=== PATIENT | female | born 1995 | race Caucasian/White ===

== ENCOUNTER 2016-07-05 13:47 | Emergency (ER) | payer SELFPAY ==
[~2016-07-05] VITALS: Ht 175.3 cm; Wt 63.0 kg
[2016-07-05 13:53] VITALS: BP 141/89; PULSE 73; TEMP 36.6; O2SAT 100; Ht 175.3 cm; Wt 63.0 kg
[2016-07-05] MEDS ORDERED: AMX875 PO (14:09)
[2016-07-05] MEDS ORDERED: ALBU18002 INH (14:09)
[2016-07-05] MEDS ORDERED: FLUC200T4 PO (14:22)
--- NOTE | 2016-07-07 11:21 | EMERGENCY ROOM VISIT NOTE ---
ED Visit Note First contact with patient: 13:56 Chief Complaint: White throat. History of Present Illness: Ms. Prakash is a 19-year-old white female who ambulates into the ED accompanied by her boyfriend complaining of white spots on her throat and tonsils. She reports her symptoms started approximately 10 days ago with a sore throat and a cough. She was tested for strep last week at a local urgent care center and it was negative. She reports she has been having ongoing pain and today she noted white spots on the back of her throat and over her tonsils. She describes her pain as an achy sensation. She rates her discomfort 1/10. Her pain is nonradiating. Her pain worsens with swallowing. She has not identified any alleviating factors related to the pain. She has not taken any medications for pain prior to arrival at the hospital. She continues to have a nonproductive cough and some mild nasal drainage. She denies fevers, chills, sweats, skin eruptions, skin color changes, headache, dizziness, lightheadedness, moist changes, painful talking, drooling, inability to swallow, neck pain/stiffness, shortness of breath, hemoptysis, wheezing, chest pain, abdominal pain, decreased appetite and nausea/vomiting. Review of Systems: As noted above in history of present illness. 8 body systems were reviewed and found to be negative as noted above. Past Medical History: Unspecified skin disorder, asthma, bronchitis, pneumonia. Current Medications: Amoxicillin, albuterol Allergies to Medications: Patient denies. Social History: Patient is currently employed; she feels safe in her home environment; she admits to tobacco and alcohol use. Physical Examination: Vital Signs: Date Time Temp Pulse Resp B/P Pulse Ox O2 Delivery O2 Flow Rate FiO2 07/05/16 13:53 36.6 73 16 141/89 100 Room Air GENERAL: 21-year-old female in mild distress due to pain, nontoxic-appearing, afebrile and hemodynamically stable. NEUROLOGICAL: Awake, alert and oriented to person, place and time. Answering questions appropriately and following commands. Normal gait. Good hand eye coordination. No focal motor sensory deficits. SKIN: Warm, dry and pink. No soft tissue eruptions or trauma noted. HEENT: Atraumatic and normocephalic. PERRLA. Sclera white and conjunctiva pink without drainage. No drainage from naris, but audible congestion. Airway patent. Oral cavity moist and pink. Uvula is midline and no abscesses are seen. Mild bilateral tonsillar hypertrophy; on the tonsils as well as the posterior pharyngeal area there is a whitish plaque appearing consistent with thrush. Speech normal and clear. No lymphadenopathy. Trachea midline. No jugular venous distention. No laryngeal tenderness. BACK: No tenderness over the bony spine. Full range of motion of the cervical spine THORAX: Lungs sounds are clear to auscultation and equal bilaterally with symmetrical chest wall. ED Course: Patient is assessed as noted above. Patient was educated about tonight's findings and instructed on her treatment plan; she verbalized understanding and agreement with this plan. Clinical Impression: Acute pharyngitis. Thrush. Disposition: Patient discharged home in stable condition accompanied by her boyfriend; prior to departure she was reassessed and subjectively reported she was feeling the same. Plan: Patient was encouraged to alternate ibuprofen and acetaminophen as needed for pain. Patient was prescribed 200 mg of Diflucan once a day for 7 days. Patient was encouraged to gargle with saltwater. Patient was encouraged to avoid tobacco use. Patient was encouraged to use a spacer with her albuterol inhaler. Patient was encouraged to follow-up with her PCP for recheck in 4-5 days. Patient was encouraged return the ED for worsening/uncontrolled pain, painful talking, drooling, fevers, inability to swallow or any new/concerning symptoms.
== END 2016-07-05 14:20 | disposition home or self-care (01) ==
LOC: C.EDB 13:50 → C.EDD 14:20
DX: B37.9 Candidiasis, unspecified (principal); J02.9 Acute pharyngitis, unspecified

== ENCOUNTER 2016-07-21 13:50 | Emergency (ER) | payer SELFPAY ==
[~2016-07-21] VITALS: Ht 175.3 cm; Wt 62.0 kg
[~2016-07-21 13:50] MED LIST: ALBU18002 INH; AMX875 PO
[2016-07-21 14:07] VITALS: Ht 175.3 cm; Wt 62.0 kg
[2016-07-21] MEDS ORDERED: ALBUT/IPRATROP 3MG/0.5MG NEB 3 ML VIAL INH STA (14:33)
[2016-07-21 15:08] LABS: BASO % 0.3 %; BASO ABS # 0.05 K/uL (0-0.2); COMPLETE YES; EOS % 1.1 %; HEMATOCRIT 37.5 % (37-47); IG% 0.2 %; LYMPH % 11.6 %; LYMPH ABS # 1.71 K/uL (1.2-3.4); MEAN CELL VOLUME 84.7 fL (80-100); MEAN CORPUSCULAR HGB CONC 35.5 g/dl (32-36); MONO % 8.2 %; NEUT % 78.6 %; PLATELET COUNT 462 K/uL (130-400); RED BLOOD COUNT 4.43 M/uL (4.2-5.4); WHITE BLOOD COUNT 14.78 K/uL (4.8-10.8)
--- NOTE | 2016-07-21 15:21 | DIAGNOSTIC IMAGING REPORT ---
CHEST 2 VIEWS ROUTINE CLINICAL HISTORY: Cough. Chest tightness. COMPARISON STUDY: Chest radiograph and chest CT October 10, 2013. FINDINGS: Lung volumes are normal. There is no pneumothorax or pleural effusion. There is mild right suprahilar opacity as well as mild opacity along the left heart border, likely within the lingula. Cardiac size is normal. Mediastinal contours are normal. There is no evidence of pulmonary edema. IMPRESSION: Mild right upper lobe and lingular airspace opacities which suggest an infectious process such as bronchopneumonia. Post treatment radiographs to ensure resolution are recommended. Electronically signed by: Girma Ortez M.D. 07/21/2016 3:20 PM Dictated Date/Time: 07/21/2016 3:19 PM
[2016-07-21 15:27] LABS: BUN/CREATININE RATIO 9.6 (10-20); CREATININE 0.84 mg/dl (0.60-1.20); POTASSIUM 3.6 mmol/L (3.5-5.1)
[2016-07-21] MEDS ORDERED: ALBU18002 INH (16:07)
[2016-07-21] MEDS ORDERED: AZIT250T PO (16:07)
--- NOTE | 2016-07-21 16:08 | EMERGENCY ROOM VISIT NOTE ---
History First contact with patient: 14:22 Chief Complaint: ILLNESS Stated Complaint: COLD/HOT FLASHES, SICK History of Present Illness The patient is a 21 year old female who presents to the Emergency Room with complaints of cough, irritated throat, head congestion and feeling like she has had a fever for the past 2 days. The patient has asthma but she has been out of her pro-air and has not got her prescription filled. The patient admits to some slight nausea and one episode of vomiting yesterday. The patient denies any abdominal pain. The patient denies any urinary symptoms Review of Systems 10 system review was performed and was negative unless stated otherwise history of present illness. Past Medical/Surgical History Medical Problems: (1) Asthma (2) Bronchitis Social History Smoking Status: Current Every Day Smoker Alcohol Use: occasionally Drug Use: none Marital Status: in relationship Occupation Status: employed Current/Historical Medications No Active Prescriptions or Reported Meds Allergies Coded Allergies: No Known Allergies (Unverified , 06/30/14) Physical Exam Vital Signs Date Time Temp Pulse Resp B/P Pulse Ox O2 Delivery O2 Flow Rate FiO2 07/21/16 14:07 37.0 88 18 115/71 96 Physical Exam PHYSICAL EXAM: Vital Signs were reviewed: Temperature 37.0, pressure 115/71, pulse 89, respiratory rate 18 Reviewed Nurse's notes and agree. Oxygen saturation is 96 % on room air which is normal . GENERAL 21-year-old female appears in no acute distress. MENTAL STATUS: Alert, oriented, coherent. EARS: Canals clear. TMs good light reflex, no erythema or fluid level noted. NOSE: Nasal mucosa with moderate erythema engorgement. PHARYNX: No erythema, no edema noted. No exudate noted. Airway is adequate. NECK: Supple, non-tender. No lymphadenopathy noted. LUNGS: Patient has respiratory wheezing noted bilaterally. No rales or rhonchi noted. Fair air exchange. CARDIAC: Regular rate and rhythm without murmur. ABDOMEN: Positive bowel sounds all 4 quadrants. Soft, nontender to palpation without organomegaly or masses. SKIN: No rashes noted. Medical Decision & Procedures ER Provider Diagnostic Interpretation: CHEST 2 VIEWS ROUTINE CLINICAL HISTORY: Cough. Chest tightness. COMPARISON STUDY: Chest radiograph and chest CT October 10, 2013. FINDINGS: Lung volumes are normal. There is no pneumothorax or pleural effusion. There is mild right suprahilar opacity as well as mild opacity along the left heart border, likely within the lingula. Cardiac size is normal. Mediastinal contours are normal. There is no evidence of pulmonary edema. IMPRESSION: Mild right upper lobe and lingular airspace opacities which suggest an infectious process such as bronchopneumonia. Post treatment radiographs to ensure resolution are recommended. Electronically signed by: Girma Ortez M.D. 07/21/2016 3:20 PM Laboratory Results 07/21/16 14:50 Red Blood Count 4.43, Mean Corpuscular Volume 84.7, Mean Corpuscular Hemoglobin 30.0, Mean Corpuscular Hemoglobin Concent 35.5, Mean Platelet Volume 10.0, Neutrophils (%) (Auto) 78.6, Lymphocytes (%) (Auto) 11.6, Monocytes (%) (Auto) 8.2, Eosinophils (%) (Auto) 1.1, Basophils (%) (Auto) 0.3, Neutrophils # (Auto) 11.62, Lymphocytes # (Auto) 1.71, Monocytes # (Auto) 1.21, Eosinophils # (Auto) 0.16, Basophils # (Auto) 0.05 07/21/16 14:50 Test 07/21/16 14:30 07/21/16 14:50 Influenza Type A Antigen Neg for Influ A (NEG) Influenza Type B Antigen Neg for Influ B (NEG) White Blood Count 14.78 K/uL (4.8-10.8) Red Blood Count 4.43 M/uL (4.2-5.4) Hemoglobin 13.3 g/dL (12.0-16.0) Hematocrit 37.5 % (37-47) Mean Corpuscular Volume 84.7 fL (80-100) Mean Corpuscular Hemoglobin 30.0 pg (25-34) Mean Corpuscular Hemoglobin Concent 35.5 g/dl (32-36) Platelet Count 462 K/uL (130-400) Mean Platelet Volume 10.0 fL (7.4-10.4) Neutrophils (%) (Auto) 78.6 % Lymphocytes (%) (Auto) 11.6 % Monocytes (%) (Auto) 8.2 % Eosinophils (%) (Auto) 1.1 % Basophils (%) (Auto) 0.3 % Neutrophils # (Auto) 11.62 K/uL (1.4-6.5) Lymphocytes # (Auto) 1.71 K/uL (1.2-3.4) Monocytes # (Auto) 1.21 K/uL (0.11-0.59) Eosinophils # (Auto) 0.16 K/uL (0-0.5) Basophils # (Auto) 0.05 K/uL (0-0.2) RDW Standard Deviation 40.7 fL (36.4-46.3) RDW Coefficient of Variation 13.3 % (11.5-14.5) Immature Granulocyte % (Auto) 0.2 % Immature Granulocyte # (Auto) 0.03 K/uL (0.00-0.02) Anion Gap 9.0 mmol/L (3-11) Est Creatinine Clear Calc Drug Dose 102.8 ml/min Estimated GFR () 114.3 Estimated GFR (Non- 98.7 BUN/Creatinine Ratio 9.6 (10-20) Calcium Level 9.0 mg/dl (8.5-10.1) Medications Administered Medications (Trade) Dose Ordered Sig/Deborah Route Start Time Stop Time Status Last Admin Dose Admin Albuterol/ Ipratropium (Duoneb) 3 ml NOW STAT INH 07/21/16 14:33 07/21/16 14:36 DC 07/21/16 14:55 3 ML ED Course The patient was evaluated. IV access was obtained. CBC and differential renal profile was ordered. Chest x-ray was ordered and interpreted by the radiologist myself as above with right upper lobe pneumonia. Influenza was negative for influenza A and influenza B. The patient was given a DuoNeb. Labs are reviewed. The patient's white count was elevated at 14,000 otherwise unremarkable. The patient was informed of the findings and discharged home in stable condition. Medical Decision Differential diagnosis include influenza, bronchitis, asthma exacerbation, pneumonia Impression Primary Impression: Pneumonia Departure Information Dispostion Home / Self-Care Condition GOOD Prescriptions Albuterol Sulfate (Proair Respiclick) 108 Mcg/Act Aer 2 PUFFS INH Q4, #1 BTL Prov: Cori Roca PA-C 07/21/16 Azithromycin (Zithromax) 250 Mg Tab 500 MG PO DAILY for 5 Days, #10 TAB Prov: Cori Roca PA-C 07/21/16 Referrals No Doctor, Assigned (PCP) Forms HOME CARE DOCUMENTATION FORM, IMPORTANT VISIT INFORMATION, WORK / SCHOOL INSTRUCTIONS Patient Instructions ED Pneumonia, [facility] Additional Instructions Tylenol and ibuprofen as needed for fever and body aches. Use Proair 2 puffs every 4 hours as needed. Take Zithromax daily as prescribed. Follow-up with your family physician in 2 days for recheck. Problem Qualifiers Primary Impression: Pneumonia Pneumonia type: due to unspecified organism Laterality: right Lung location : upper lobe of lung Qualified Codes: J18.1 - Lobar pneumonia, unspecified organism
[2016-07-21 17:16] VITALS: BP 112/66; PULSE 81; TEMP 37; O2SAT 96
== END 2016-07-21 17:17 | disposition home or self-care (01) ==
LOC: C.EDB 13:51
DX: J18.9 Pneumonia, unspecified organism (principal); J45.909 Unspecified asthma, uncomplicated; F17.200 Nicotine dependence, unspecified, uncomplicated

== ENCOUNTER 2017-02-15 17:10 | Emergency (ER) | payer SELFPAY ==
[~2017-02-15] VITALS: Ht 167.6 cm; Wt 62.5 kg
[~2017-02-15 17:10] MED LIST changes: -AMX875 PO
[2017-02-15 17:15] VITALS: TEMP 36.7; Ht 167.6 cm; Wt 62.5 kg
[2017-02-15 18:53] LABS: BASO % 0.4 %; BASO ABS # 0.05 K/uL (0-0.2); COMPLETE YES; EOS % 3.5 %; HEMATOCRIT 42.4 % (37-47); IG% 0.2 %; LYMPH % 15.3 %; LYMPH ABS # 1.75 K/uL (1.2-3.4); MEAN CELL VOLUME 87.1 fL (80-100); MEAN CORPUSCULAR HGB CONC 34.4 g/dl (32-36); MEAN PLATELET VOLUME 10.4 fL (7.4-10.4); NEUT % 73.6 %; PLATELET COUNT 489 K/uL (130-400); RED BLOOD COUNT 4.87 M/uL (4.2-5.4); WHITE BLOOD COUNT 11.43 K/uL (4.8-10.8)
[2017-02-15 19:07] LABS: URINE APPEARANCE CLEAR (CLEAR); URINE BILIRUBIN NEG (NEG); URINE COLOR YELLOW; URINE NITRITE NEG (NEG); URINE PH 7.5 (4.5-7.5); URINE SPECIFIC GRAVITY 1.007 (1.000-1.030); UROBILINOGEN NEG (NEG)
[2017-02-15 19:09] LABS: BUN/CREATININE RATIO 11.9 (10-20); CALCIUM 9.9 mg/dl (8.5-10.1); CREATININE 0.93 mg/dl (0.60-1.20); POTASSIUM 3.7 mmol/L (3.5-5.1)
[2017-02-15 19:14] LABS: MANUAL MICROSCOPIC REQUIRED? NO; REVIEW REQ? NO
--- NOTE | 2017-02-15 19:25 | DIAGNOSTIC IMAGING REPORT ---
ABDOMEN LIMITED (US) HISTORY: ABDOMINAL PAIN. Comparison: None Findings: Nonvisualization of the appendix IMPRESSION: Nonvisualization of the appendix The above report was generated using voice recognition software. It may contain grammatical, syntax or spelling errors. Electronically signed by: Sarthak Roca M.D. 02/15/2017 7:23 PM Dictated Date/Time: 02/15/2017 7:23 PM
--- NOTE | 2017-02-15 19:29 | DIAGNOSTIC IMAGING REPORT ---
PELVIC COMPLETE NON OB CLINICAL HISTORY: eval for ovarian cyst/torsion RLQ pain PAIN. NAUSEA. COMPARISON STUDY: None FINDINGS: The uterus measured 5.8 cm. The endometrial stripe measured 6 mm. The right ovary measured 3.3 cm. There is suggestion of heterogeneity of ovary with evidence for a complex of the adjacent to and medial to the right ovary measuring 5 x 1.5 cm. Possibility of a complex hydrosalpinx is considered.. The left ovary measured maximum dimension 3.2 cm with several small follicular cysts and normal vascular flow. There is no ultrasonographic evidence of ovarian torsion. It should be noted that ovarian torsion can be present with normal Doppler ultrasonographic findings. There was no evidence of pathologic free pelvic fluid. IMPRESSION: Complex mildly enlarged right ovary with a surrounding somewhat tubular 5 x 1.5 cm complex structure medial to the right ovary. Possibility of hydrosalpinx is a consideration. Hemorrhagic complex cystic components are also possible. Remainder of the pelvis is negative. The above report was generated using voice recognition software. It may contain grammatical, syntax or spelling errors. Electronically signed by: Sarthak Roca M.D. 02/15/2017 7:28 PM Dictated Date/Time: 02/15/2017 7:24 PM
[2017-02-15] MEDS ORDERED: DOXY100C2 PO (20:48)
[2017-02-15] MEDS ORDERED: CEFTRIAXONE SOD INJ 1 GM ADDVIAL IV STA (20:48)
[2017-02-15] MEDS ORDERED: DOXYCYCLINE HYCLATE 100 MG CAP PO STA (20:48)
[2017-02-15 21:31] VITALS: BP 121/76; PULSE 81; O2SAT 100
--- NOTE | 2017-02-16 00:03 | EMERGENCY ROOM VISIT NOTE ---
History Report prepared by Sondra: Moncho Ng Under the Supervision of: Dr. Sanchez Johnson M.D. First contact with patient: 17:59 Chief Complaint: ABDOMINAL PAIN Stated Complaint: BELLY PAIN Nursing Triage Summary: Right sided abd pain off and on for approx one week. Denies n/v/d/c History of Present Illness The patient is a 21 year old female who presents to the Emergency Room with complaints of constant right lower abdominal pain for the past week that sometimes feels like a stabbing pain. The patient denies any fever, vomiting, diarrhea, vaginal bleeding or discharge. The patient states that she has only had a small bowel movement this morning, and she states that she sometimes has abdominal pain with urination. The patient denies any past abdominal surgery or active medical problems. She states that her last period was three weeks ago, and it was normal. Source of History: patient Onset: a week ago Position: abdomen (RLQ) Quality: stabbing Timing: constant Associated Symptoms: No nausea, No vomiting, No diarrhea Review of Systems See HPI for pertinent positives & negatives. A total of 10 systems reviewed and were otherwise negative. Past Medical & Surgical Medical Problems: (1) Asthma (2) Bronchitis Social History Smoking Status: Current Every Day Smoker Alcohol Use: occasionally Drug Use: none Marital Status: in relationship Occupation Status: employed Current/Historical Medications Scheduled Doxycycline Hyclate (Vibramycin), 100 MG PO BID Allergies Coded Allergies: No Known Allergies (Unverified , 02/15/17) Physical Exam Vital Signs Date Time Temp Pulse Resp B/P (MAP) Pulse Ox O2 Delivery O2 Flow Rate FiO2 02/15/17 21:31 81 18 121/76 100 02/15/17 18:39 92 18 129/78 100 Room Air 02/15/17 17:15 36.7 99 16 126/85 100 Room Air Physical Exam Constitutional: Vital signs reviewed. Eyes: Pupils are equal round reactive to light. Conjunctiva are noninjected. ENT: Pharynx is clear without erythema or exudate. Mucous membranes are moist. Neck supple without meningeal signs. Respiratory: Clear to auscultation bilaterally. Breath sounds are equal bilaterally. Cardiovascular: Regular rate and rhythm. No rubs or gallops. GI: Right lower quadrant tenderness. No rebound. Soft and nondistended. Bowel sounds are present. Pelvic: Some uterine tenderness. No CMT. No significant discharge. No bleeding. Musculoskeletal: No peripheral edema. No CVA tenderness. Integumentary: No cyanosis. Neurological: The patient is awake and alert. No focal deficits. Psychiatric: Normal affect. Medical Decision & Procedures ER Provider Diagnostic Interpretation: Radiology results as stated below per my review and the radiologist's interpretation: PELVIC COMPLETE NON OB CLINICAL HISTORY: eval for ovarian cyst/torsion RLQ pain PAIN. NAUSEA. COMPARISON STUDY: None FINDINGS: The uterus measured 5.8 cm. The endometrial stripe measured 6 mm. The right ovary measured 3.3 cm. There is suggestion of heterogeneity of ovary with evidence for a complex of the adjacent to and medial to the right ovary measuring 5 x 1.5 cm. Possibility of a complex hydrosalpinx is considered.. The left ovary measured maximum dimension 3.2 cm with several small follicular cysts and normal vascular flow. There is no ultrasonographic evidence of ovarian torsion. It should be noted that ovarian torsion can be present with normal Doppler ultrasonographic findings. There was no evidence of pathologic free pelvic fluid. IMPRESSION: Complex mildly enlarged right ovary with a surrounding somewhat tubular 5 x 1.5 cm complex structure medial to the right ovary. Possibility of hydrosalpinx is a consideration. Hemorrhagic complex cystic components are also possible. Remainder of the pelvis is negative. The above report was generated using voice recognition software. It may contain grammatical, syntax or spelling errors. Electronically signed by: Sarthak Roca M.D. 02/15/2017 7:28 PM Dictated Date/Time: 02/15/2017 7:24 PM ABDOMEN LIMITED (US) HISTORY: ABDOMINAL PAIN. Comparison: None Findings: Nonvisualization of the appendix IMPRESSION: Nonvisualization of the appendix The above report was generated using voice recognition software. It may contain grammatical, syntax or spelling errors. Electronically signed by: Sarthak Roca M.D. 02/15/2017 7:23 PM Dictated Date/Time: 02/15/2017 7:23 PM Laboratory Results 02/15/17 18:30 Red Blood Count 4.87, Mean Corpuscular Volume 87.1, Mean Corpuscular Hemoglobin 30.0, Mean Corpuscular Hemoglobin Concent 34.4, Mean Platelet Volume 10.4, Neutrophils (%) (Auto) 73.6, Lymphocytes (%) (Auto) 15.3, Monocytes (%) (Auto) 7.0, Eosinophils (%) (Auto) 3.5, Basophils (%) (Auto) 0.4, Neutrophils # (Auto) 8.41, Lymphocytes # (Auto) 1.75, Monocytes # (Auto) 0.80, Eosinophils # (Auto) 0.40, Basophils # (Auto) 0.05 02/15/17 18:30 Test 02/15/17 18:30 02/15/17 20:30 White Blood Count 11.43 K/uL (4.8-10.8) Red Blood Count 4.87 M/uL (4.2-5.4) Hemoglobin 14.6 g/dL (12.0-16.0) Hematocrit 42.4 % (37-47) Mean Corpuscular Volume 87.1 fL (80-100) Mean Corpuscular Hemoglobin 30.0 pg (25-34) Mean Corpuscular Hemoglobin Concent 34.4 g/dl (32-36) Platelet Count 489 K/uL (130-400) Mean Platelet Volume 10.4 fL (7.4-10.4) Neutrophils (%) (Auto) 73.6 % Lymphocytes (%) (Auto) 15.3 % Monocytes (%) (Auto) 7.0 % Eosinophils (%) (Auto) 3.5 % Basophils (%) (Auto) 0.4 % Neutrophils # (Auto) 8.41 K/uL (1.4-6.5) Lymphocytes # (Auto) 1.75 K/uL (1.2-3.4) Monocytes # (Auto) 0.80 K/uL (0.11-0.59) Eosinophils # (Auto) 0.40 K/uL (0-0.5) Basophils # (Auto) 0.05 K/uL (0-0.2) RDW Standard Deviation 42.4 fL (36.4-46.3) RDW Coefficient of Variation 13.3 % (11.5-14.5) Immature Granulocyte % (Auto) 0.2 % Immature Granulocyte # (Auto) 0.02 K/uL (0.00-0.02) Urine Color YELLOW Urine Appearance CLEAR (CLEAR) Urine pH 7.5 (4.5-7.5) Urine Specific [place] 1.007 (1.000-1.030) Urine Protein NEG (NEG) Urine Glucose (UA) NEG (NEG) Urine Ketones NEG (NEG) Urine Occult Blood NEG (NEG) Urine Nitrite NEG (NEG) Urine Bilirubin NEG (NEG) Urine Urobilinogen NEG (NEG) Urine Leukocyte Esterase NEG (NEG) Urine Test NEG (NEG) Anion Gap 6.0 mmol/L (3-11) Est Creatinine Clear Calc Drug Dose 88.8 ml/min Estimated GFR () 101.1 Estimated GFR (Non- 87.2 BUN/Creatinine Ratio 11.9 (10-20) Calcium Level 9.9 mg/dl (8.5-10.1) Total Bilirubin 0.6 mg/dl (0.2-1) Direct Bilirubin 0.1 mg/dl (0-0.2) Aspartate Amino Transf (AST/SGOT) 28 U/L (15-37) Alanine Aminotransferase (ALT/SGPT) 26 U/L (12-78) Alkaline Phosphatase 116 U/L (45-117) Total Protein 8.4 gm/dl (6.4-8.2) Albumin 4.4 gm/dl (3.4-5.0) Lipase 111 U/L (73-393) Date/Time Source Procedure Growth Status 02/15/17 20:30 Vaginal Swab Trichomonas Preparation - Final Complete Laboratory results as reviewed by me. Medications Administered Medications (Trade) Dose Ordered Sig/Deborah Route Start Time Stop Time Status Last Admin Dose Admin Ceftriaxone Sodium (Rocephin Inj) 1 gm NOW STAT IV 02/15/17 20:48 02/15/17 20:50 DC 02/15/17 20:58 1 GM Doxycycline Hyclate (Vibramycin Cap) 100 mg NOW STAT PO 02/15/17 20:48 02/15/17 20:50 DC 02/15/17 20:58 100 MG ED Course 175: The patient was evaluated in room B7. A complete history and physical exam was performed. 2005: I discussed the test results with the patient, and after discussion she elected not to have the CT done. 2035: I Talked to the patient alone, and she states that her boyfriend has been her only partner, and as far as she knows, she is his only partner as well. She denies any history of PID or STD. 2044: I discussed the patient's case with Dr. Mackay, CRIMINAL COURT JUDGE, and she said to treat the patient with ceftriaxone and doxy, and to follow up with her in the office for an ultrasound and reassessment. 2047: Doxycycline Hyclate 100mg PO, Rocephin Inj 1gm IV 2120: I discussed the plan with the patient, and she is agreeable. She will be discharged home. Medical Decision This is a 21-year-old female who presents with right-sided abdominal pain. Differential diagnosis includes ovarian cyst, ruptured cyst, appendicitis, irritable bowel syndrome, inflammatory bowel disease, kidney stone. I did perform a limited focused review of portions of the patient's old chart on the electronic medical record. The patient has had no recent pertinent visits to this hospital. I did evaluate the patient as noted above. The patient has had right-sided and suprapubic tenderness for approximately a week. She has had no associated symptoms such as fever or vomiting. She is tender in the right lower quadrant. IV access was established. I did order and personally review the patient's urinalysis as described above. I did order and review the patient's blood work as noted in the electronic medical record. Her white blood cell count is not elevated. I did order an ultrasound of the right lower quadrant and pelvis. I did review the images myself as well as the radiology report as described above. The appendix was not visualized. The pelvic ultrasound demonstrated possible hydrosalpinx versus a complex ovarian cyst on the right side. I did discuss the test results with the patient. I did discuss the possibility of CT scanning with her but her symptoms seem more consistent with findings on the ultrasound. She does not have an elevated white blood cell count, her symptoms have been going on for a week and she has had no fever. Seems unlikely that she would've had appendicitis without these findings for a week. I did discuss this with her and she agreed to forego the CAT scan. I did perform a pelvic examination and sent genital cultures as well as testing for GC and chlamydia and trichomonas. Pelvic examination revealed some uterine tenderness. I did discuss the case with Dr. Mackay of gynecology. She recommended antibiotic treatment and follow up in the office. I did discuss this with the patient. She was happy with this plan. She was treated with Rocephin IV and doxycycline. She was discharged with a prescription for doxycycline. She was told to return immediately should she have any worsening symptoms or develop any new symptoms such as fever or vomiting. Medication Reconcilliation Current Medication List: was personally reviewed by me Blood Pressure Screening Patient's blood pressure: Elevated blood pressure Blood pressure disposition: Elevated BP felt to be situational Consults Time Called: 2042 Consulting Physician: Dr. Mackay, CRIMINAL COURT JUDGE Returned Call: 2044 I discussed the patient's case with Dr. Mackay, CRIMINAL COURT JUDGE, and she said to treat the patient with ceftriaxone and doxy, and to follow up with her in the office for an ultrasound and reassessment. Impression Primary Impression: Pelvic pain Additional Impression: Ovarian cyst Scribe Attestation The scribe's documentation has been prepared under my direct and personally reviewed by me in its entirety. I confirm that the note above accurately reflects all work, treatment, procedures, and medical decision making performed by me. Departure Information Dispostion Home / Self-Care Prescriptions Doxycycline Hyclate (VIBRAMYCIN) 100 Mg Cap 100 MG PO BID for 10 Days, #20 CAP Prov: Sanchez Johnson M.D. 02/15/17 Referrals No Doctor, Assigned (PCP) Forms HOME CARE DOCUMENTATION FORM, IMPORTANT VISIT INFORMATION Patient Instructions My [facility] Additional Instructions You have been examined and treated today on an emergency basis only. This is not a substitute for, or an effort to provide, complete comprehensive medical care. It is impossible to recognize and treat all injuries or illnesses in a single emergency department visit. It is therefore important that you follow up closely with Dr. Mackay of gynecology. Call as soon as possible for an appointment. The office opens at 8:30 AM tomorrow. Return for worsening symptoms or if you develop fever, vomiting, or any other concerning symptoms. Problem Qualifiers Additional Impression: Ovarian cyst Laterality: right Qualified Codes: N83.201 - Unspecified ovarian cyst, right side
[2017-02-18 01:07] LABS: CHLAMYDIA TRACH RNA*** NOT DETECTED (NOT DETECTED); GC (NEIS GONORRHOEAE)RNA** NOT DETECTED (NOT DETECTED)
== END 2017-02-15 21:32 | disposition home or self-care (01) ==
LOC: C.EDB 17:12
DX: N83.201 Unspecified ovarian cyst, right side (principal); R10.2 Pelvic and perineal pain; J45.909 Unspecified asthma, uncomplicated; F17.210 Nicotine dependence, cigarettes, uncomplicated

== ENCOUNTER 2017-07-13 12:34 | Emergency (ER) | payer SELFPAY ==
[~2017-07-13] VITALS: Ht 175.3 cm; Wt 53.0 kg
[~2017-07-13 12:34] MED LIST changes: -ALBU18002 INH; +DOXY100C2 PO
[2017-07-13 12:58] VITALS: TEMP 37; Ht 175.3 cm; Wt 53.0 kg
[2017-07-13] MEDS ORDERED: ALBUT/IPRATROP 3MG/0.5MG NEB 3 ML VIAL INH STA (14:34)
[2017-07-13] MEDS ORDERED: VNTHFA/IN INH (14:40)
[2017-07-13] MEDS ORDERED: PRED10TA PO (14:40)
[2017-07-13] MEDS ORDERED: AMOX875T PO (14:40)
[2017-07-13 14:52] VITALS: BP 121/67; PULSE 78; O2SAT 95
--- NOTE | 2017-07-13 15:01 | DIAGNOSTIC IMAGING REPORT ---
CHEST 2 VIEWS ROUTINE CLINICAL HISTORY: cough, asthma dyspnea COMPARISON STUDY: 07/21/2016 FINDINGS: Unchanging right perihilar and lingular densities which potentially indicates a mild inflammatory component this is similar in distribution, however as compared to the prior study raising the possibility of chronic parenchymal scarring. Diaphragms are smooth. Lungs otherwise are clear. IMPRESSION: Chronic parenchymal scarring versus minimal infiltrative changes right perihilar region and lingula. The above report was generated using voice recognition software. It may contain grammatical, syntax or spelling errors. Electronically signed by: Sarthak Roca M.D. 07/13/2017 3:00 PM Dictated Date/Time: 07/13/2017 2:58 PM
[2017-07-13] MEDS ORDERED: HYDR5SYP11 PO (15:14)
--- NOTE | 2017-07-13 20:41 | EMERGENCY ROOM VISIT NOTE ---
History First contact with patient: 14:19 Chief Complaint: RESPIRATORY PROBLEMS Stated Complaint: PNEUMONIA Nursing Triage Summary: pt c/o dx with penumonia and still doesn't feel any better, given amoxicillin and prednisone + cough productive History of Present Illness The patient is a 22 year old female who presents to the Emergency Room with complaints of persistent cough, runny nose, congestion and wheezing. The patient reports that her symptoms started last Thursday. She was seen by her PCP on , and prescribed prednisone and amoxicillin. The patient reports that she was diagnosed with pneumonia without a chest x-ray. The patient reports that her symptoms persist. She does have a Ventolin inhaler at home that has been helping with the cough. She has not noticed any fevers or chills, and does not feel that her symptoms have significantly worsened over the past 24 hours. Review of Systems 10 system review was performed and was negative except for pertinent positives and negatives as indicated in history of present illness Past Medical/Surgical History Medical Problems: (1) Asthma (2) Bronchitis Family History Unremarkable Social History Smoking Status: Current Every Day Smoker Alcohol Use: occasionally Drug Use: none Marital Status: in relationship Occupation Status: employed Current/Historical Medications Scheduled Albuterol Hfa (Ventolin Hfa), 2-4 PUFFS INH Q6H Amoxicillin & Pot Clavulanate (Augmentin 875-125 mg), 1 TAB PO BID Prednisone Tab (Prednisone), 10 MG PO UD Scheduled PRN Hydrocodone W/ Homatropine (Hycodan 5/1.5MG 5 Ml), 5-10 ML PO Q4H PRN for Cough Physical Exam Vital Signs Date Time Temp Pulse Resp B/P (MAP) Pulse Ox O2 Delivery O2 Flow Rate FiO2 07/13/17 14:52 78 121/67 95 Room Air 07/13/17 12:58 37.0 99 22 127/71 95 Physical Exam CONSTITUTIONAL: Healthy and well nourished. Alert and oriented X 3 with positive affect. Patient does not appear in any acute respiratory distress. HEENT: Normocephalic, atraumatic. Pupils equal, round and reactive. Ears and nares are clear. No scleral icterus or conjunctival injection. OROPHARYNX: Minimal posterior pharyngeal erythema without tonsillar hypertrophy or exudates. NECK: Full active range of motion without discomfort. RESPIRATORY: The patient has diffuse expiratory wheezing, without obvious crackles, rhonchi or stridor. CARDIOVASCULAR: Regular rate and rhythm with no murmurs, rubs or gallops. GASTROINTESTINAL: Bowel sounds present in all quadrants. Soft and nontender to palpation. MUSCULOSKELETAL: Full range of motion of all joints without discomfort. INTEGUMENTARY: No rash or other significant dermatologic conditions noted. NEUROLOGIC: No focal neurologic deficits noted. Medical Decision & Procedures ER Provider Diagnostic Interpretation: My interpretation of a two-view chest x-ray does not show any consolidations, cardiomegaly or pneumothorax. Radiologist report is as follows: CHEST 2 VIEWS ROUTINE CLINICAL HISTORY: cough, asthma dyspnea COMPARISON STUDY: 07/21/2016 FINDINGS: Unchanging right perihilar and lingular densities which potentially indicates a mild inflammatory component this is similar in distribution, however as compared to the prior study raising the possibility of chronic parenchymal scarring. Diaphragms are smooth. Lungs otherwise are clear. IMPRESSION: Chronic parenchymal scarring versus minimal infiltrative changes right perihilar region and lingula. Medications Administered Medications (Trade) Dose Ordered Sig/Deborah Route Start Time Stop Time Status Last Admin Dose Admin Albuterol/ Ipratropium (Duoneb) 3 ml NOW STAT INH 07/13/17 14:34 07/13/17 14:36 DC 07/13/17 14:51 3 ML ED Course Patient history and physical exam were performed. Nurse's notes were reviewed. Vital signs were reviewed and were normal. The patient is currently afebrile and not tachycardic. Her O2 saturation is 95% on room air. The patient does have notable wheezing. A unit dose DuoNeb treatment was administered with good relief of the wheezing. A two-view chest x-ray was normal. The patient was advised that her symptoms are likely secondary to a viral upper respiratory infection. She is already on suppressive antibiotics, and taking a prednisone, both of which are important with history of asthma. The patient was provided a prescription for Hycodan cough syrup as needed for worse cough. She was encouraged to continue follow-up with her PCP if symptoms are not improving within the next week. The patient was happy with plan of care, and voiced understanding of all discharge instructions. Medical Decision [place] Drug Monitoring Program Search Results: patient reviewed within database, no issues identified Medication Reconcilliation Current Medication List: was personally reviewed by me Blood Pressure Screening Patient's blood pressure: Normal blood pressure Impression Primary Impression: Upper respiratory infection, viral Additional Impression: History of asthma Departure Information Prescriptions Hydrocodone W/ Homatropine (HYCODAN 5/1.5MG 5 ML) 1 Syp Syp 5-10 ML PO Q4H Y for Cough, #200 ML Prov: Az Curran PA 07/13/17 Referrals No Doctor, Assigned (PCP) Patient Instructions My [facility] Problem Qualifiers
== END 2017-07-13 15:34 | disposition home or self-care (01) ==
LOC: C.EDD 15:18
DX: J06.9 Acute upper respiratory infection, unspecified (principal); J45.909 Unspecified asthma, uncomplicated; F17.200 Nicotine dependence, unspecified, uncomplicated

== ENCOUNTER → 2017-12-24 | Outpatient (CLI) | payer OTHER ==
[~2017-12-24] MED LIST changes: +AMOX875T PO; -DOXY100C2 PO; +HYDR5SYP11 PO; +PRED10TA PO; +VNTHFA/IN INH
--- NOTE | 2017-12-24 13:02 | DIAGNOSTIC IMAGING REPORT ---
SCOLIOSIS 2 VIEW (AP LAT) CLINICAL HISTORY: M54.6 Chronic bilateral thoracic back [id number] COMPARISON STUDY: Chest 07/13/2017. FINDINGS: AP and lateral views of the entire spine were submitted. Straightening of the cervical spine. There is mild levoscoliosis within the upper thoracic spine. This demonstrates a Fxo angle of 14 degrees measured from the level of T1 through the inferior endplate of T5. There is also minimal dextroscoliosis of the thoracolumbar junction with a Fox angle of 7 degrees measured from the inferior endplate of T11 through the inferior plate of T1. IMPRESSION: Mild S-shaped scoliosis of the thoracolumbar spine as described above. Electronically signed by: Cliff Gregory M.D. 12/24/2017 1:01 PM Dictated Date/Time: 12/24/2017 12:58 PM
--- NOTE | 2017-12-24 14:05 | DIAGNOSTIC IMAGING REPORT ---
R RIBS UNILATERAL WITH PA CHEST CLINICAL HISTORY: 22 years-old Female presenting with M95.4 Rib deformity Please evaluate bony anomaly of the right chest. TECHNIQUE: PA view of the chest as well as frontal and oblique views of the right ribs were obtained. COMPARISON: None. FINDINGS: Cardiomediastinal silhouette normal. Lungs and pleural spaces clear. Upper abdomen normal. No displaced right rib fracture. No osseous abnormality is evident. Trace dextroscoliotic curvature of the thoracic spine. IMPRESSION: No radiographic evidence of a rib deformity. No displaced right rib fracture. No acute cardiopulmonary disease. Electronically signed by: Manuel Romano M.D. 12/24/2017 2:04 PM Dictated Date/Time: 12/24/2017 2:02 PM
== END | disposition home or self-care (01) ==
LOC: C.RAD 12:16
PROVIDERS: ATTEND Nurse Practitioner
DX: M41.9 Scoliosis, unspecified (principal); M95.4 Acquired deformity of chest and rib

== ENCOUNTER → 2018-01-28 | Outpatient (CLI) | payer OTHER ==
--- NOTE | 2018-01-28 11:58 | DIAGNOSTIC IMAGING REPORT ---
MRI OF THE THORACIC SPINE WITHOUT CONTRAST CLINICAL HISTORY: Thoracic spine pain. COMPARISON: Scoliosis radiographs December 24, 2017. TECHNIQUE: Utilizing a 1.5 Louise magnet and dedicated coil, multiplanar, multiecho imaging of the thoracic spine was performed without IV contrast. FINDINGS: Mild levoscoliosis of the upper thoracic spine and mild dextroscoliosis of the lower thoracic spine is again noted as shown on radiographs of December 24, 2017. Vertebral body heights are maintained. No marrow edema or marrow replacement is present. Paravertebral soft tissues are unremarkable. No intracanalicular mass or fluid collection is present. Thoracic cord signal and caliber are normal. No disc herniation is present. Disc spaces are preserved. IMPRESSION: 1. Normal thoracic cord signal and caliber. 2. No disc herniation. Patent central canal and neural foramen. 3. Minimal S-shaped scoliosis of the thoracic spine as shown on radiographs of December 24, 2017. Otherwise, normal MRI of the thoracic spine. Electronically signed by: Girma Ortez M.D. 01/28/2018 11:56 AM Dictated Date/Time: 01/28/2018 11:36 AM
== END | disposition home or self-care (01) ==
LOC: C.MRI 10:22
PROVIDERS: ATTEND Orthopaedic Surgery
DX: M54.6 Pain in thoracic spine (principal)